=== PATIENT | female | born 1955 | race Caucasian/White ===

== ENCOUNTER 2022-07-27 15:45 | Emergency (ER) | payer MEDICARE ==
[2022-07-27 16:20] LABS: Bacteria MODERATE /HPF (NEGATIVE); Mucus SLIGHT /HPF (NEGATIVE); WBC >100 /HPF (0-5)
[2022-07-27 16:23] LABS: Appearance SLIGHTLY CLOUDY (CLEAR); Bilirubin SMALL (NEGATIVE); Glucose 500 mg/dL (NEGATIVE); Ketones TRACE (NEGATIVE); Ph 5.5 (5-6); Protein,Urine Dip >=300 (Negative); RBC >101 /HPF (0-2); RBC LARGE Ery/ul (0-5); Specific Gravity >=1.030 (1.005-1.025); Urine Cultured Indicated? YES
[2022-07-27 16:24] LABS: Nitrite NEGATIVE (NEGATIVE); Urobilinogen 0.2 mg/dL (0-1)
[2022-07-27 16:43] LABS: Dipstick done @ ? MAIN LAB
[2022-07-27 17:30] VITALS: BP 184/102; O2SAT 98
[2022-07-27] MEDS ORDERED: BACTRIM DS TABLET PO STA (19:04)
[2022-07-27] MEDS ORDERED: BACTRIM DS TABLET PO ONE (19:05)
--- NOTE | 2022-07-27 19:08 | ERPHSYRPT ---
- History of Present Illness Time Seen by Provider: 07/27/22 17:25 Source: patient Exam Limitations: no limitations Patient Subjective Stated Complaint: Pt has open sores on the back of her hands on the knuckles for the past 4 days that look like craters, pt has had what she thinks is a fungal infection in her vagina and has been trying to treat it with various products and she thinks that it has been transfered to her hands Triage Nursing Assessment: Pt brought to the ER by her , hypertensive, tachycardic, rates hand pain as 4/10, states that the wounds ooze yellow and clear drainage, has vaginal smelly drainage as well per pt Physician History: Patient is a 66-year-old female presents to emergency department for evaluation of her hands x4 days. Patient has lesions on both hands particularly the fifth third knuckle bilaterally. Patient states her has a bad fungal infection and she is concerned that she may have acquired his fungal infection. Symptoms have been ongoing for several days. Patient states the lesion started off of small papules then progressed to open lesions. Patient has a history of recurrent urinary tract infections along with yeast infections which she is currently managing. Patient concerned that these lesions may also be a result of her chronic urinary tract infections. Symptoms are mild to moderate in intensity. No specific worsening improving factors. No fever. No nausea or vomiting no systemic manifestations. Patient voices no other complaints or concerns at this time. Portions of this note were created with voice recognition technology. There may be grammatical, spelling, punctuation or sound alike errors Timing/Duration: day(s) (4 days) Severity: moderate Modifying Factors: Improves With: nothing Associated Symptoms: denies symptoms Allergies/Adverse Reactions: No Known Drug Allergies Allergy (Verified 07/27/22 17:30) Hx Influenza Vaccination/Date Given: No Hx Pneumococcal Vaccination/Date Given: No Travel Risk - International Travel Have you traveled outside of the country in past 3 weeks: No - Coronavirus Screening Are you exhibiting any of the following symptoms?: No Close contact with a COVID-19 positive Pt in past 14-21 Days: No - Vaccine Status Have you recieved a Covid-19 vaccination: No - Review of Systems Constitutional: No Symptoms, No Fever, No Chills Eyes: No Symptoms Ears, Nose, & Throat: No Symptoms Respiratory: No Symptoms, No Cough, No Dyspnea Cardiac: No Symptoms, No Chest Pain, No Edema, No Syncope Abdominal/Gastrointestinal: No Symptoms, No Abdominal Pain, No Nausea, No Vomiting, No Diarrhea Genitourinary Symptoms: No Symptoms, No Dysuria Musculoskeletal: No Symptoms, No Back Pain, No Neck Pain Skin: No Symptoms, No Rash Neurological: No Symptoms, No Dizziness, No Focal Weakness, No Sensory Changes Psychological: No Symptoms Endocrine: No Symptoms Hematologic/Lymphatic: No Symptoms Immunological/Allergic: No Symptoms All Other Systems: Reviewed and Negative - Past Medical History Pertinent Past Medical History: No - Past Surgical History Past Surgical History: Yes Female Surgical History: Section - Social History Smoking Status: Never smoker Exposure to second hand smoke: No Drug Use: none Patient Lives Alone: No - Nursing Vital Signs Nursing Vital Signs: Initial Vital Signs Temperature 98.5 F 07/27/22 17:19 Pulse Rate 116 H 07/27/22 17:19 Blood Pressure 184/102 07/27/22 17:19 O2 Sat by Pulse Oximetry 98 07/27/22 17:19 Pain Scale Pain Intensity 2 - Physical Exam General Appearance: no apparent distress, alert Eye Exam: PERRL/EOMI, eyes nml inspection Ears, Nose, Throat Exam: normal ENT inspection, TMs normal, pharynx normal, moist mucous membranes Neck Exam: normal inspection, non-tender, supple, full range of motion Respiratory Exam: normal breath sounds, lungs clear, No respiratory distress Cardiovascular Exam: regular rate/rhythm, normal heart sounds, normal peripheral pulses Gastrointestinal/Abdomen Exam: soft, normal bowel sounds, No tenderness, No mass Pelvic Exam: not done Back Exam: normal inspection, normal range of motion, No CVA tenderness, No vertebral tenderness Extremity Exam: normal inspection, normal range of motion, pelvis stable, other (Patient has lesions at knuckles 5 and 3 that are in the same stage of formation. Both lesions started all as a papule that progressed into these open lesions. There is a papule developing over knuckle #2 which is also in the same stage of formation on the contralateral hand. Possible autoimmune i) Neurologic Exam: alert, oriented x 3, cooperative, normal mood/affect, nml cerebellar function, nml station & gait, sensation nml, No motor deficits Skin Exam: normal color, warm, dry, No rash Lymphatic Exam: No adenopathy SpO2 Interpretation: normal SpO2: 98 O2 Delivery: Room Air - Course Nursing assessment & vital signs reviewed: Yes Ordered Tests: Active Orders 24 hr Category Date Time Status CULTURE,URINE Stat Lab 07/27/22 15:58 Received UA W/RFX CULTURE Stat Lab 07/27/22 15:58 Completed Medication Summary Generic Name Dose Route Start Last Admin Trade Name Liza PRN Reason Stop Dose Admin Fluconazole 100 mg 07/28/22 10:00 07/27/22 19:07 Fluconazole 100 Mg Tablet PO 08/27/22 09:59 Not Given DAILY CHELSIE Discontinued Medications Generic Name Dose Route Start Last Admin Trade Name Liza PRN Reason Stop Dose Admin Trimethoprim/Sulfamethoxazole 1 tab 07/27/22 19:04 07/27/22 19:07 Smz/Tmp Ds Tablet 1 Tablet PO 07/27/22 19:05 1 tab STAT STA Administration Trimethoprim/Sulfamethoxazole Confirm 07/27/22 19:05 Smz/Tmp Ds Tablet 1 Tablet Administered 07/27/22 19:06 Dose 1 tab PO .STK-MED ONE Lab/Rad Data: Laboratory Results 07/27/22 Range/Units 15:58 Urinalys Dipstick Clnc MAIN LAB Urine Color YOVANY (YELLOW) Urine Appearance SLIGHTLY CLOUDY A (CLEAR) Urine pH 5.5 (5-6) Ur Specific [place] >=1.030 A (1.005-1.025) POC Urine Protein Conf >=300 A (Negative) Urine Ketones TRACE A (NEGATIVE) Urine Nitrite NEGATIVE (NEGATIVE) Urine Bilirubin SMALL A (NEGATIVE) Urine Urobilinogen 0.2 (0-1) mg/dL Urine Leukocytes SMALL A (NEGATIVE) Urine WBC (Auto) >100 A (0-5) /HPF Urine RBC (Auto) >101 A (0-2) /HPF U Epithel Cells (Auto) NONE (FEW) /HPF Urine Bacteria (Auto) MODERATE A (NEGATIVE) /HPF Urine RBC LARGE A (0-5) Davis/ul Urine Mucus (Auto) SLIGHT A (NEGATIVE) /HPF Ur Culture Indicated? YES Urine Glucose 500 A (NEGATIVE) mg/dL - Progress Progress: improved Progress Note: Patient reassessed. Patient has urinary tract infection. We will treat with an antibiotic and also cover skin. Patient received a dose of Bactrim in our ED. Patient describes a yeast infection. Patient also received a prescription for Diflucan. Patient does not have a primary care doctor currently. Patient referred to Dr. Molina for follow-up. We spoke to Dr. Molina who agrees to follow-up with patient on outpatient basis. Patient voices no other complaints or concerns at this time. Portions of this note were created with voice recognition technology. There may be grammatical, spelling, punctuation or sound alike errors 07/27/22 19:[address] Key Will see patient in: hospital (observation) Counseled pt/family regarding: lab results, diagnosis, need for follow-up, rad results - Departure Departure Disposition: Home Clinical Impression: Skin lesion, Urinary tract infection Condition: Stable Critical Care Time: No Referrals: DOCTOR,NO FAMILY [Primary Care Provider] - Follow up/PCP as directed SYED GARCIA DO [ACTIVE STAFF] - Follow up/PCP as directed Instructions: Urinary Tract Infection, Adult (DC) Additional Instructions: Discharge/Care Plan JAYJAY DELGADO was seen on 07/27/22 in the Emergency Room. The patient was counseled regarding Diagnosis,Lab results, Imaging studies, need for follow up and when to return to the Emergency Room. Prescriptions given: Discharge Note I have spoken with the patient and/or caregivers. I have explained the patient's condition, diagnosis and treatment plan based on the information available to me at this time. I have answered the patient's and/or caregiver's questions and addressed any concerns. The patient and/or caregivers have as good understanding of the patient's diagnosis, condition and treatment plan as can be expected at this point. The vital signs have been stable. The patient's condition is stable and appropriate for discharge from the emergency department. The patient will pursue further outpatient evaluation with the primary care physician or other designated or consulting physician as outlined in the discharge instructions. The patient and/or caregivers are agreeable to this plan of care and follow-up instructions have been explained in detail. The patient and/or caregivers have received these instruction. The patient/and or caregivers are aware that any significant change in condition or worsening of symptoms should prompt an immediate return to this or the closest emergency department or call 911. Prescriptions: Smz/Tmp Ds Tablet [Bactrim Ds Tablet] 1 udtab PO BID 7 Days #14 tablet Fluconazole 100 mg [Diflucan 100 MG] 100 mg PO DAILY 2 Days #2 tablet
[2022-07-27 19:10] VITALS: PULSE 96
[2022-07-28] MEDS ORDERED: Diflucan 100 MG PO SCH (10:00)
== END 2022-07-27 19:17 | disposition home or self-care (01) ==
LOC: ED 15:45
DX: L98.9 Disorder of the skin and subcutaneous tissue, unspecified (principal); N39.0 Urinary tract infection, site not specified; Z28.310 Unvaccinated for COVID-19
CPT/HCPCS: 81015; 87077; 87086; 87186; 99283; A9270-GY